=== PATIENT | male | born 1950 | race Caucasian/White ===

== ENCOUNTER → 2019-09-22 | Emergency (ER) | payer OTHER, MEDICAID ==
[~2019-09-22] VITALS: Ht 170.2 cm; Wt 68.0 kg
[~2019-09-22] MED LIST: LISI10TA6 PO; MAGNESIUM CITRATE SOLUTION 300 ML BTL PO ONE; OMEP20CA74 OR; SODIUM CHLORIDE 0.9% 1,000 ML IV ONE
[2019-09-22 19:45] LABS: Basophils # (auto) 0.1 10 ^3/uL (0-0.2); Basophils % (auto) 0.3 % (0.0-2.0); Eosinophils # (auto) 0.1 10 ^3/uL (0-0.8); Eosinophils % (auto) 0.5 % (0.0-7.0); Hematocrit 47.1 % (41.0-53.0); Hemoglobin 15.5 g/dL (13.5-17.5); Lymphocytes # (auto) 1.1 10 ^3/uL (0.4-5.4); Lymphocytes % (auto) 7.5 % (10.0-50.0); Mean Corpuscular Hemoglobin 31.2 pg (28.0-32.0); Mean Corpuscular Volume 94.4 fL (80.0-100.0); Monocytes # (auto) 1.3 10 ^3/uL (0-1.3); Monocytes % (auto) 8.9 % (0.0-12.0); Neutrophils # (auto) 12.5 10 ^3/uL (1.6-8.6); Neutrophils % (auto) 82.8 % (37.0-80.0); Nucleated Red Blood Cells % 0.1 %; Platelet Count (auto) 358 10^3/uL (140-450); Red Blood Cells 4.99 10^6/uL (4.5-5.90); White Blood Cell 15.1 10^3/uL (4.4-10.8)
[2019-09-22 20:03] LABS: Chloride 104 mmol/L (98-107); Potassium 3.9 mmol/L (3.5-5.1); Sodium 136 mmol/L (136-145)
[2019-09-22 20:12] LABS: Alanine Aminotransferase 14 U/L (16-61); Albumin 4.1 g/dL (3.4-5.0); Alkaline Phosphatase 89 U/L (45-117); Amylase 46 U/L (25-115); Anion Gap 7 (5-15); Aspartate Aminotransferase 20 U/L (15-37); BUN/Creatinine Ratio 23.4; Bilirubin, Total 0.6 mg/dL (0.2-1.0); Blood Urea Nitrogen 30 mg/dL (7-18); Calcium 9.3 mg/dL (8.5-10.1); Carbon Dioxide 25 mmol/L (21-32); GFR African American 71 mL/min; GFR Non-African American 59 mL/min; Glucose 94 mg/dL (74-106); Lipase 54 U/L (73-393); Total Protein 7.9 g/dL (6.4-8.2)
[2019-09-22 22:30] LABS: Urine Bacteria NONE SEEN /hpf (None Seen); Urine Blood Negative /uL (Negative); Urine Hyaline Cast FEW /lpf (0 - 2); Urine Mucus FEW (None Seen); Urine Specific Gravity 1.023 (1.001-1.035); Urine WBC 1 /hpf (0 - 3)
[2019-09-23] VITALS: BP 153/78
== END | disposition home or self-care (01) ==
LOC: ER 18:20
DX: N20.0 Calculus of kidney (principal); K21.0 Gastro-esophageal reflux disease with esophagitis; I10 Essential (primary) hypertension; F17.210 Nicotine dependence, cigarettes, uncomplicated
CPT/HCPCS: 36415; 74176; 80053; 81001; 82150; 83605; 83690; 83735; 84484; 85025; 87040; 93005; 99285; J7030

== ENCOUNTER 2020-02-22 03:50 | Emergency (ER) | payer OTHER, MEDICAID ==
[~2020-02-22] VITALS: Ht 170.2 cm; Wt 68.0 kg
[~2020-02-22 03:50] MED LIST changes: +LISI-648 PO; -LISI10TA6 PO; -MAGNESIUM CITRATE SOLUTION 300 ML BTL PO ONE; -SODIUM CHLORIDE 0.9% 1,000 ML IV ONE
[2020-02-22 04:22] VITALS: BP 123/77
[2020-02-22] MEDS ORDERED: KETOROLAC TROMETH 60MG/2ML VIAL IM ONE (05:15)
== END 2020-02-22 05:36 | disposition home or self-care (01) ==
LOC: ER 03:50
DX: M16.11 Unilateral primary osteoarthritis, right hip (principal)
CPT/HCPCS: 73502; 96372; 99283; J1885